=== PATIENT | female | born 1990 | race Caucasian/White ===

== ENCOUNTER 2018-09-14 09:25 | Day surgery (SDC) | payer SELFPAY ==
[~2018-09-14 09:25] MED LIST: HYDROCODONE/APAP 5/325 TAB PO SCH
[2018-09-14 09:53] LABS: PLATELET COUNT 258 10^3/uL (150-400)
--- NOTE | 2018-09-14 09:58 | EDPHY ---
H & P Stated Complaint: rlq abd pain Time Seen by Provider: 09/14/18 09:34 HPI/ROS: CHIEF COMPLAINT: Right lower quadrant abdominal pain since last evening HISTORY OF PRESENT ILLNESS: 28-year-old female no history of abdominal surgeries complaining of right lower quadrant pain. Initially started as periumbilical pain which is now migrated to the right lower quadrant since last evening. Positive nausea. No appetite. Normal bowel movements. No melena hematochezia. No headache. No fever no chills. No trauma. Last menstrual period 1 week ago. Last oral intake lunch yesterday. REVIEW OF SYSTEMS: 10 systems reviewed and negative with the exception of the elements mentioned in the history of present illness PAST MEDICAL & SURGICAL HISTORY: No pertinent medical or surgical history SOCIAL HISTORY: Nonsmoker PHYSICAL EXAM (Prior to examination, patient consented to physical exam, hands were washed and my usual and customary physical exam procedures followed) 1) GENERAL: Well-developed, well-nourished, alert and oriented. Appears to be in no acute distress. 2) HEAD: Normocephalic, atraumatic 3) HEENT: Pupils equal, round, reactive to light bilaterally. Sclera anicteric. 4) NECK: Full range of motion, no meningeal signs. 5) LUNGS: Clear auscultation bilaterally, no wheezes, no rhonchi, no retractions. 6) HEART: Regular rate and rhythm, no murmur, no heave, no gallop. 7) ABDOMEN: No guarding, positive McBurney's point pain, negative Wallace's, negative Rovsing's, negative peritoneal sign, 8) MUSCULOSKELETAL: Moving all extremities, no focal areas of tenderness, no obvious trauma. No peripheral edema or discoloration. 9) BACK: No CVA tenderness, no midline vertebral tenderness, no fluctuance, no step-off, no obvious trauma, no visual or palpable abnormality. 10) SKIN: No rash, no petechiae. 11) Psychiatric: Patient is oriented X 3, there is no agitation. DIFFERENTIAL DIAGNOSIS: My differential diagnosis includes, but is not limited to, acute appendicitis, acute cholecystitis, bowel obstruction, acute pancreatitis, ovarian torsion, ectopic , gastritis and urinary tract infection. The patient understands that this diagnosis is provisional and can never be 100% accurate. This is a partial list of diagnoses considered. These considerations are based on history, physical exam, past history and reassessment. - Personal History LMP (Females 10-55): 1-7 Days Ago Current Tetanus/Diphtheria Vaccine: Yes - Medical/Surgical History Hx Asthma: No Hx Chronic Respiratory Disease: No Hx Diabetes: No Hx Cardiac Disease: No Hx Renal Disease: No Hx Cirrhosis: No Hx Alcoholism: No Hx HIV/AIDS: No Hx Splenectomy or Spleen Trauma: No Other PMH: denies - Social History Smoking Status: Never smoked Constitutional: Initial Vital Signs Temperature (C) 36.5 C 09/14/18 09:27 Heart Rate 78 09/14/18 09:27 Respiratory Rate 17 09/14/18 09:27 Blood Pressure 137/76 H 09/14/18 09:27 O2 Sat (%) 98 09/14/18 09:27 O2 Delivery Mode Room Air Allergies/Adverse Reactions: No Known Allergies Allergy (Unverified 09/14/18 09:27) Home Medications: Medication Instructions Recorded NK [No Known Home Meds] 09/14/18 Medical Decision Making - Diagnostics Imaging Results: Imaging Impressions Abdomen Ultrasound 09/14/18 09:45 Impression: Nondiagnostic assessment of the appendix. If there is further clinical concern regarding the patient's right lower quadrant pain, contrast-enhanced CT imaging could be considered. Findings were discussed with Martin Stiles PA-C at 10:54, on 09/14/2018. Pelvic/Renal Ultrasound 09/14/18 09:45 Impression: 1. There appears to be a complex collapsing right ovarian structure measuring 2.3 cm in diameter, with no evidence of torsion or free fluid. As clinically directed, repeat evaluation in 8-12 weeks could be considered. 2. There is an intrauterine device, which appears appropriately positioned with the caveat that there is some limitation in evaluation of the position of the right side arm. 3. There is a subcentimeter collapsing cyst at the anterior mid endometrial- myometrial interface. Findings were discussed with Martin Stiles PA-C at 10:55, on 09/14/2018. Abdomen CT 09/14/18 11:13 Impression: Acute appendicitis/periappendicitis, with mild associated gastroenteric dysmotility. Findings were discussed with Evan Stiles at 12:54, on 09/14/2018. ED Course/Re-evaluation: 9:57 a.m.: Patient has focal to tender to palpation right lower quadrant. Will obtain both pelvic and abdominal ultrasound to evaluate ovaries and appendix. She remains NPO since lunch yesterday. Care of patient under supervision of secondary supervising physician Dr Kern with whom I discussed case. 11:14 a.m.: Re-evaluation. Patient's ultrasound of the abdomen is nondiagnostic for appendicitis. She is noted to have involuting ovarian cyst which may be the etiology of her symptoms however on re-examination she remains focally tender [place] [phone] imaging of the abdomen pelvis. Indications risks benefits discussed with patient and she verbally consents. 12:56 p.m.: CT abdomen pelvis interpreted by staff radiologist positive for appendicitis at this time. Will consult with surgery administer IV antibiotics. Last oral intake was lunch yesterday 1:00 p.m.: Consultation Dr. Walker who will take patient to OR later. Spoke with the patient. She verbalized understanding of her current diagnosis. She remains NPO since yesterday afternoon. Will Be given IV Rocephin and Flagyl. - Data Points Laboratory Results: Laboratory Results 09/14/18 09:40 09/14/18 09:40 09/14/18 09/14/18 09/14/18 09:50 09:40 09:40 WBC RBC Hgb Hct MCV MCH MCHC RDW Plt Count MPV Neut % (Auto) Lymph % (Auto) [place] % (Auto) Eos % (Auto) Baso % (Auto) Nucleat RBC Rel Count Absolute Neuts (auto) Absolute Lymphs (auto) Absolute Monos (auto) Absolute Eos (auto) Absolute Basos (auto) Absolute Nucleated RBC Immature Gran % Immature Gran # Sodium 140 mEq/L mEq/L (135-145) Potassium 3.5 mEq/L mEq/L (3.5-5.2) Chloride 104 mEq/L mEq/L (97-110) Carbon Dioxide 23 mEq/l mEq/l (22-31) Anion Gap 13 mEq/L mEq/L (6-14) BUN 9 mg/dL mg/dL (7-23) Creatinine 0.8 mg/dL mg/dL (0.6-1.0) Estimated GFR > 60 Glucose 93 mg/dL mg/dL (70-100) Calcium 9.8 mg/dL mg/dL (8.5-10.4) Total Bilirubin 1.0 mg/dL mg/dL (0.1-1.4) Conjugated Bilirubin 0.3 mg/dL mg/dL (0.0-0.5) Unconjugated Bilirubin 0.7 mg/dL mg/dL (0.0-1.1) AST 24 IU/L IU/L (14-46) ALT 10 IU/L IU/L (9-52) Alkaline Phosphatase 71 IU/L IU/L (38-126) Total Protein 8.5 g/dL H g/dL (6.3-8.2) Albumin 5.1 g/dL H g/dL (3.5-5.0) Lipase 84 IU/L IU/L (23-300) Beta HCG, Qual NEGATIVE Urine Color AGGIE Urine Appearance MODERATELY TURBID Urine pH 5.0 (5.0-7.5) Ur Specific [place] 1.027 (1.002-1.030) Urine Protein 1+ H (NEGATIVE) Urine Ketones 1+ H (NEGATIVE) Urine Blood 1+ H (NEGATIVE) Urine Nitrate NEGATIVE (NEGATIVE) Urine Bilirubin NEGATIVE (NEGATIVE) Urine Urobilinogen NEGATIVE EU EU (0.2-1.0) Ur Leukocyte Esterase TRACE H (NEGATIVE) Urine RBC 3-5 /hpf H /hpf (0-3) Urine WBC 5-10 /hpf H /hpf (0-3) Ur Epithelial Cells 1+ /lpf /lpf (NONE-1+) Urine Bacteria TRACE /hpf H /hpf (NONE SEEN) Urine Mucus 4+ /lpf H /lpf (NONE-1+) Urine Glucose NEGATIVE (NEGATIVE) 09/14/18 09:40 WBC 14.88 10^3/uL H 10^3/uL (3.80-9.50) RBC 4.69 10^6/uL 10^6/uL (4.18-5.33) Hgb 14.3 g/dL g/dL (12.6-16.3) Hct 42.6 % % (38.0-47.0) MCV 90.8 fL fL (81.5-99.8) MCH 30.5 pg pg (27.9-34.1) MCHC 33.6 g/dL g/dL (32.4-36.7) RDW 12.8 % % (11.5-15.2) Plt Count 258 10^3/uL 10^3/uL (150-400) MPV 9.8 fL fL (8.7-11.7) Neut % (Auto) 76.8 % H % (39.3-74.2) Lymph % (Auto) 14.7 % L % (15.0-45.0) [place] % (Auto) 7.9 % % (4.5-13.0) Eos % (Auto) 0.2 % L % (0.6-7.6) Baso % (Auto) 0.2 % L % (0.3-1.7) Nucleat RBC Rel Count 0.0 % % (0.0-0.2) Absolute Neuts (auto) 11.43 10^3/uL H 10^3/uL (1.70-6.50) Absolute Lymphs (auto) 2.19 10^3/uL 10^3/uL (1.00-3.00) Absolute Monos (auto) 1.17 10^3/uL H 10^3/uL (0.30-0.80) Absolute Eos (auto) 0.03 10^3/uL 10^3/uL (0.03-0.40) Absolute Basos (auto) 0.03 10^3/uL 10^3/uL (0.02-0.10) Absolute Nucleated RBC 0.00 10^3/uL 10^3/uL (0-0.01) Immature Gran % 0.2 % % (0.0-1.1) Immature Gran # 0.03 10^3/uL 10^3/uL (0.00-0.10) Sodium Potassium Chloride Carbon Dioxide Anion Gap BUN Creatinine Estimated GFR Glucose Calcium Total Bilirubin Conjugated Bilirubin Unconjugated Bilirubin AST ALT Alkaline Phosphatase Total Protein Albumin Lipase Beta HCG, Qual Urine Color Urine Appearance Urine pH Ur Specific [place] Urine Protein Urine Ketones Urine Blood Urine Nitrate Urine Bilirubin Urine Urobilinogen Ur Leukocyte Esterase Urine RBC Urine WBC Ur Epithelial Cells Urine Bacteria Urine Mucus Urine Glucose Medications Given: Ceftriaxone Sodium/Dextrose (Rocephin 1 Gm (Premix)) 50 mls @ 100 mls/hr IV EDNOW ONE PRN Reason: Protocol Stop: 09/14/18 13:27 Last Admin: 09/14/18 13:07 Dose: 50 mls Metronidazole/Sodium Chloride (Flagyl 500 Mg (Premix)) 100 mls @ 100 mls/hr IV EDNOW ONE PRN Reason: Protocol Stop: 09/14/18 13:57 Last Admin: 09/14/18 13:09 Dose: 100 mls Departure - Departure Disposition: [facility] Inpatient Acute Clinical Impression: Acute appendicitis Qualifiers: Acute appendicitis type: with localized peritonitis Appendicitis gangrene presence: without gangrene Appendicitis perforation presence: without perforation Appendicitis abscess presence: without abscess Qualified Code(s): K35.30 - Acute appendicitis with localized peritonitis, without perforation or gangrene Condition: Fair
[2018-09-14] MEDS ORDERED: IOPAMIDOL (ISOVUE-300) 100 ML BTL ONE (11:16)
[2018-09-14] MEDS ORDERED: ONDANSETRON 4 MG/2 ML VIAL ONE ×2 (13:11→16:13)
[2018-09-14] MEDS ORDERED: LR 1,000 ML IV ONE (13:12)
[2018-09-14] MEDS ORDERED: ONDANSETRON 4 MG/2 ML VIAL IVP ONE (13:12)
[2018-09-14] MEDS ORDERED: MIDAZOLAM 2 MG/2 ML VIAL IVP ONE (15:58)
--- NOTE | 2018-09-14 15:58 | PDANEPAE ---
ANE History of Present Illness Appendectomy laparoscopic vs. open ANE Past Medical History - Cardiovascular History Hx Hypertension: No Hx Arrhythmias: No Hx Chest Pain: No Hx Coronary Artery / Peripheral Vascular Disease: No Hx CHF / Valvular Disease: No Hx Palpitations: No - Pulmonary History Hx COPD: No Hx Asthma/Reactive Airway Disease: No Hx Recent Upper Respiratory Infection: No Hx Oxygen in Use at Home: No Hx Sleep Apnea: No - Neurologic History Hx Cerebrovascular Accident: No Hx Seizures: No Hx Dementia: No - Endocrine History Hx Diabetes: No - Renal History Hx Renal Disorders: No - Liver History Hx Hepatic Disorders: No - Neurological & Psychiatric Hx Hx Neurological and Psychiatric Disorders: No - Cancer History Hx Cancer: No - Congenital Disorder History Hx Congenital Disorders: No - GI History Hx Gastrointestinal Disorders: No ANE Review of Systems Review of systems is: negative Review of Systems: - Exercise capacity Exercise capacity: >=4 METS METS (RN): 6 METS ANE Patient History - Allergies Allergies/Adverse Reactions: No Known Allergies Allergy (Unverified 09/14/18 09:27) - Home Medications Home medications: home medication list seen and reviewed Home Medications: NK [No Known Home Meds] 09/14/18 [Last Taken Unknown] - NPO status NPO Since - Liquids (Date): 09/14/18 NPO Since - Liquids (Time): 08:00 NPO Since - Solids (Date): 09/13/18 - Anes Hx Anes Hx: no prior problems - Smoking Hx Smoking Status: Never smoked - Family Anes Hx Family Anes Hx: none ANE Labs/Vital Signs - Labs Result Diagrams: 09/14/18 09:40 09/14/18 09:40 - Vital Signs Vital Signs: reviewed preoperatively; see RN documention for details Blood Pressure: 110/71 Heart Rate: 82 Respiratory Rate: 18 O2 Sat (%): 95 Height: 170.18 cm Weight: 72.575 kg ANE Physical Exam - Airway Neck exam: FROM Mallampati Score: Class 1 Mouth exam: normal dental/mouth exam - Pulmonary Pulmonary: no respiratory distress - Cardiovascular Cardiovascular: regular rate and rhythym - ASA Status ASA Status: I, E ANE Anesthesia Plan Anesthesia Plan: general endotracheal anesthesia
--- NOTE | 2018-09-14 16:12 | PDGENHP ---
History and Physical - Chief Complaint abd pain - History of Present Illness 28 y/o female visiting [place] on a work assignment when she developed abd pain yesterday. She presented today to the ED and was found to have appendicits confirmed by CT. Surgical consultation was requested History Information - Allergies/Home Medication List Allergies/Adverse Reactions: No Known Allergies Allergy (Unverified 09/14/18 09:27) Home Medications: NK [No Known Home Meds] 09/14/18 [Last Taken Unknown] I have personally reviewed and updated: family history, medical history, social history, surgical history - Past Medical History asthma Additional medical history: LMP 2 days ago - Surgical History Reports: no pertinent surgical hx - Social History Smoking Status: Never smoked Alcohol Use: Occasionally Drug Use: None Review of Systems Review of Systems: Respiratory: Reports: no symptoms Gastrointestinal: Reports: abdominal pain, abdominal distention, nausea Physical Exam Physical Exam: Temp Pulse Resp BP Pulse Ox 36.5 C 82 18 110/71 95 09/14/18 15:50 09/14/18 15:58 09/14/18 15:58 09/14/18 15:58 09/14/18 15:58 Constitutional: no apparent distress Eyes: anicteric sclera Ears, Nose, Mouth, Throat: moist mucous membranes Cardiovascular: regular rate and rhythym Respiratory: clear to auscultation Gastrointestinal: soft, non-tender abdomen Genitourinary: no bladder fullness Skin: warm, no rashes or abrasions Neurologic: AAOx3 Psychiatric: interacting appropriately, not anxious Lab Data & Imaging Review 09/14/18 09:40 09/14/18 09:40 WBC 14.88 10^3/uL (3.80-9.50) H 09/14/18 09:40 RBC 4.69 10^6/uL (4.18-5.33) 09/14/18 09:40 Hgb 14.3 g/dL (12.6-16.3) 09/14/18 09:40 Hct 42.6 % (38.0-47.0) 09/14/18 09:40 MCV 90.8 fL (81.5-99.8) 09/14/18 09:40 MCH 30.5 pg (27.9-34.1) 09/14/18 09:40 MCHC 33.6 g/dL (32.4-36.7) 09/14/18 09:40 RDW 12.8 % (11.5-15.2) 09/14/18 09:40 Plt Count 258 10^3/uL (150-400) 09/14/18 09:40 MPV 9.8 fL (8.7-11.7) 09/14/18 09:40 Neut % (Auto) 76.8 % (39.3-74.2) H 09/14/18 09:40 Lymph % (Auto) 14.7 % (15.0-45.0) L 09/14/18 09:40 [place] % (Auto) 7.9 % (4.5-13.0) 09/14/18 09:40 Eos % (Auto) 0.2 % (0.6-7.6) L 09/14/18 09:40 Baso % (Auto) 0.2 % (0.3-1.7) L 09/14/18 09:40 Nucleat RBC Rel Count 0.0 % (0.0-0.2) 09/14/18 09:40 Absolute Neuts (auto) 11.43 10^3/uL (1.70-6.50) H 09/14/18 09:40 Absolute Lymphs (auto) 2.19 10^3/uL (1.00-3.00) 09/14/18 09:40 Absolute Monos (auto) 1.17 10^3/uL (0.30-0.80) H 09/14/18 09:40 Absolute Eos (auto) 0.03 10^3/uL (0.03-0.40) 09/14/18 09:40 Absolute Basos (auto) 0.03 10^3/uL (0.02-0.10) 09/14/18 09:40 Absolute Nucleated RBC 0.00 10^3/uL (0-0.01) 09/14/18 09:40 Immature Gran % 0.2 % (0.0-1.1) 09/14/18 09:40 Immature Gran # 0.03 10^3/uL (0.00-0.10) 09/14/18 09:40 Sodium 140 mEq/L (135-145) 09/14/18 09:40 Potassium 3.5 mEq/L (3.5-5.2) 09/14/18 09:40 Chloride 104 mEq/L (97-110) 09/14/18 09:40 Carbon Dioxide 23 mEq/l (22-31) 09/14/18 09:40 Anion Gap 13 mEq/L (6-14) 09/14/18 09:40 BUN 9 mg/dL (7-23) 09/14/18 09:40 Creatinine 0.8 mg/dL (0.6-1.0) 09/14/18 09:40 Estimated GFR > 60 09/14/18 09:40 Glucose 93 mg/dL (70-100) 09/14/18 09:40 Calcium 9.8 mg/dL (8.5-10.4) 09/14/18 09:40 Total Bilirubin 1.0 mg/dL (0.1-1.4) 09/14/18 09:40 Conjugated Bilirubin 0.3 mg/dL (0.0-0.5) 09/14/18 09:40 Unconjugated Bilirubin 0.7 mg/dL (0.0-1.1) 09/14/18 09:40 AST 24 IU/L (14-46) 09/14/18 09:40 ALT 10 IU/L (9-52) 09/14/18 09:40 Alkaline Phosphatase 71 IU/L (38-126) 09/14/18 09:40 Total Protein 8.5 g/dL (6.3-8.2) H 09/14/18 09:40 Albumin 5.1 g/dL (3.5-5.0) H 09/14/18 09:40 Lipase 84 IU/L (23-300) 09/14/18 09:40 Beta HCG, Qual NEGATIVE 09/14/18 09:40 Urine Color AGGIE 09/14/18 09:50 Urine Appearance MODERATELY TURBID 09/14/18 09:50 Urine pH 5.0 (5.0-7.5) 09/14/18 09:50 Ur Specific [place] 1.027 (1.002-1.030) 09/14/18 09:50 Urine Protein 1+ (NEGATIVE) H 09/14/18 09:50 Urine Ketones 1+ (NEGATIVE) H 09/14/18 09:50 Urine Blood 1+ (NEGATIVE) H 09/14/18 09:50 Urine Nitrate NEGATIVE (NEGATIVE) 09/14/18 09:50 Urine Bilirubin NEGATIVE (NEGATIVE) 09/14/18 09:50 Urine Urobilinogen NEGATIVE EU (0.2-1.0) 09/14/18 09:50 Ur Leukocyte Esterase TRACE (NEGATIVE) H 09/14/18 09:50 Urine RBC 3-5 /hpf (0-3) H 09/14/18 09:50 Urine WBC 5-10 /hpf (0-3) H 09/14/18 09:50 Ur Epithelial Cells 1+ /lpf (NONE-1+) 09/14/18 09:50 Urine Bacteria TRACE /hpf (NONE SEEN) H 09/14/18 09:50 Urine Mucus 4+ /lpf (NONE-1+) H 09/14/18 09:50 Urine Glucose NEGATIVE (NEGATIVE) 09/14/18 09:50 Visualized and Interpreted imaging results: Yes Interpretation: CT reviewed with patient/acute appendicitis confirmed with selam- appendiceal inflammation Assessment & Plan Assessment: Acute appendicitis (Acute) Plan: I recommended appendectomy. We discussed the alternatives including antibiotic therapy. We discussed the procedure, risks and expected recovery. Informed consent was obtained.
[2018-09-14] MEDS ORDERED: DEXAMETHASONE 4 MG/ML VIAL ONE (16:13)
[2018-09-14] MEDS ORDERED: BUPIVACAINE 0.25% 10 ML SDV ONE (16:13)
[2018-09-14] MEDS ORDERED: PROPOFOL 200 MG/20 ML VIAL ONE (16:13)
[2018-09-14] MEDS ORDERED: fentaNYL 100 MCG/2 ML INJ ONE ×2 (16:13→17:54)
[2018-09-14] MEDS ORDERED: LIDOCAINE 2% 100 MG/5 ML SYR ONE (16:13)
[2018-09-14] MEDS ORDERED: ROCURONIUM 50 MG/5 ML VIAL ONE (16:14)
[2018-09-14] MEDS ORDERED: MIDAZOLAM 2 MG/2 ML VIAL ONE (16:26)
[2018-09-14] MEDS ORDERED: KETOROLAC 30 MG/1 ML SDV ONE (17:06)
--- NOTE | 2018-09-14 17:26 | PDHPUP ---
History & Physical Update H&P update statement: This history and physical update is based on an assessment of the patient which was completed after admission or registration (within 24 hours), but prior to the surgery/procedure. H&P update: H&P reviewed & patient examined, no change in patient's condition since H&P completed
--- NOTE | 2018-09-14 17:27 | POSTOPPROG ---
Post Op Note Date of Operation: 09/14/18 Surgeon: Blu Walker (, FACS) Anesthesiologist: Jann Watson MD Anesthesia: GET(General Endotracheal) Pre-op Diagnosis: appendicitis Procedure: appendectomy Findings: acute appendicitis Inf/Abcess present in the surg proc area at time of surgery?: Yes Depth: Organ Space EBL: Minimal (10ml) Specimen(s): appendix
[2018-09-14] MEDS ORDERED: HYDROmorphONE/DILAUDID 1 MG/ML INJ IVP PRN (17:28)
[2018-09-14] MEDS ORDERED: HYDROCODONE/APAP 5/325 TAB PO PRN ×2 (17:28→17:29)
[2018-09-14] MEDS ORDERED: ONDANSETRON 4 MG/2 ML VIAL IVP PRN (17:29)
[2018-09-14] MEDS ORDERED: NALOXONE HCL 0.4 MG/ML INJ IVP PRN (17:29)
[2018-09-14] MEDS ORDERED: HYDROmorphONE/DILAUDID 2 MG/ML INJ IVP PRN (17:29)
[2018-09-14] MEDS ORDERED: PROMETHAZINE HCL 25 MG/ML INJ IVP PRN (17:29)
[2018-09-14] MEDS ORDERED: DEXAMETHASONE 4 MG/ML VIAL IVP PRN (17:29)
[2018-09-14] MEDS ORDERED: oxyCODONE IR 5 MG TAB PO PRN (17:29)
[2018-09-14] MEDS ORDERED: MEPERIDINE 25 MG/0.5 ML AMP IVP PRN (17:29)
[2018-09-14] MEDS ORDERED: fentaNYL 100 MCG/2 ML INJ IVP PRN (17:29)
--- NOTE | 2018-09-14 17:30 | POSTANESTH ---
Post Anesthetic Evaluation Cardiovascular Status: Normal, Stable, Similar to Pre-Op Cond Respiratory Status: Normal, Stable, Similar to Pre-op Cond. Level of Consciousness/Mental Status: Can Participate in Eval, Mildly Sleepy, Arousable Pain Control: Adequate, Prn Tx Ordered Nausea/Vomiting Control: Adequate, Prn Tx Ordered Complications Possibly Related to Anesthesia: None Noted
[2018-09-14] MEDS ORDERED: HYDROCOD/APAP 5/325 PREPACK#6 BTL TAKEHOME ONE (18:49)
[2018-09-14 18:52] VITALS: BP 124/85
--- NOTE | 2018-09-14 18:58 | PDDCSUM ---
Discharge Summary Discharge Summary: Azalea underwent open appendectomy for early acute appendicitis. She recovered uneventfully in the PACU and requested early discharge. She was able to tolerate liquids and her incision was uncomplicated. DC meds: Doss 5/325 #20 Ibuprofen 600 mg #30 Senokot S #30 She will call my office for any questions or concerns/she was scheduled to fly out of state for work on Sunday, but will delay that trip until Sunday. We discussed diet, activity and wound care S MD Denise, FACS
[2018-09-14] MEDS ORDERED: oxyCODONE IR 5 MG TAB ONE (19:06)
[2018-09-14] MEDS ORDERED: IBUPROFEN 600 MG TAB PO SCH (22:00)
--- NOTE | 2018-09-15 02:11 | GOP ---
DATE OF OPERATION: 09/14/2018 SURGEON: Blu Walker MD, FACS ANESTHESIA: General endotracheal. ANESTHESIOLOGIST: Jann Watson MD PREOPERATIVE DIAGNOSIS: Acute appendicitis. POSTOPERATIVE DIAGNOSIS: Acute appendicitis. PROCEDURE PERFORMED: Open appendectomy. FINDINGS: Acute suppurative appendicitis without perforation or gangrene. ESTIMATED BLOOD LOSS: 10 cc. DESCRIPTION OF PROCEDURE: After informed consent was obtained, the patient was brought to the operating room and placed under general anesthesia. The abdomen was prepped and draped in the usual fashion. Before proceeding, a time-out and identification of the patient was performed. I discussed with the patient preoperatively the pros and cons of laparoscopic versus open appendectomy and she preferred open appendectomy because of the location of the incision. The patient received ceftriaxone and Flagyl preoperatively. 0.25% Marcaine was used to establish a regional field block and a small low right lower quadrant incision was made through the skin and subcutaneous tissues. Dissection was carried out with cautery down to the fascia, which was incised transversely between the rectus sheath and oblique muscles. A plane of dissection was entered between the rectus and internal and transversus abdominis muscles. The peritoneum was incised and the peritoneal cavity was entered and explored. The appendix was mobilized into the incision and noted to be markedly suppurative but not perforated and without foul odor. The mesoappendix was clamped, divided and ligated with 3-0 Vicryl ligatures and the appendix from the cecum with a single firing of the YAAKOV stapler. The appendix was removed from the field. The stump of the appendix had a small bleeder along the edge of the staple line. This was oversewn with a 3-0 Vicryl suture ligature. The cecum was then returned to its anatomic position. The pelvis and pericolic gutter were irrigated with normal saline until the effluent was clear. Hemostasis appeared secure. Peritoneum was closed with continuous running 3-0 Vicryl suture. The anterior fascia was closed with 0 PDS suture. The subcutaneous tissues were irrigated, approximated with 3-0 Monocryl suture, and the skin was closed with 4-0 Monocryl suture in a subcuticular fashion. Topical Dermabond was applied. The patient was returned to the recovery room in satisfactory condition. Needle, sponge, and instrument count were correct. COMPLICATIONS: None. /[id number]/MODL MTDD
[2018-09-15] MEDS ORDERED: ENOXAPARIN 40 MG/0.4 ML SYR SC SCH (09:00)
== END 2018-09-14 19:35 | disposition home or self-care (01) ==
LOC: UNDOADMOB 12:57 → FSGY 12:57 → UNDODISOB 19:35 → FSGY 19:35
PROVIDERS: ATTEND Surgery
PROC: 0DTJ0ZZ Resection of Appendix, Open Approach (ICD-10-PCS; principal; 2018-09-14 15:00)
DX: K35.30 Acute appendicitis with localized peritonitis, without perforation or gangrene (principal)
CPT/HCPCS: 96365; J0696; J1100; J1650; J1885; J2001; J2250; J2405; J2704; J3010; Q9967